=== PATIENT | female | born 1990 | race American Indian/Alaskan Native ===

== ENCOUNTER 2017-02-20 00:43 | Emergency (ER) | payer SELFPAY | END 2017-02-20 00:56 | disposition left against medical advice (07) | LOC: ED 00:43 | DX: J02.9 Acute pharyngitis, unspecified (principal); R10.9 Unspecified abdominal pain; Z53.21 Procedure and treatment not carried out due to patient leaving prior to being seen by health care provider ==

== ENCOUNTER 2017-09-13 11:57 | Emergency (ER) | payer BC ==
[2017-09-13 12:52] LABS: Hematocrit 39.4 % (30.3-42.9); Hemoglobin 12.5 gm/dl (10.1-14.3); Mean Corpuscular HGB Conc 32 % (30-34); Mean Corpuscular Hemoglobin 27 pg (28-32); Mean Corpuscular Volume 86 fl (79-97); Red Blood Count 4.58 M/mm3 (3.65-5.03); Red Cell Distribution Width 13.9 % (13.2-15.2); White Blood Count 9.1 K/mm3 (4.5-11.0)
[2017-09-13 13:01] LABS: Platelet Count 150 K/mm3 (140-440)
[2017-09-13 13:12] LABS: Alanine Aminotransferase 18 units/L (7-56); Albumin 4.2 g/dL (3.9-5); Albumin/Globulin Ratio 1.4 %; Alkaline Phosphatase 92 units/L (35-129); Anion Gap 16 mmol/L; BUN/Creatinine Ratio 18; Blood Urea Nitrogen 14 mg/dL (7-17); Calcium 9.1 mg/dL (8.4-10.2); Carbon Dioxide 27 mmol/L (22-30); Chloride 100.8 mmol/L (98-107); Glucose 98 mg/dL (65-100); Lipase 47 units/L (13-60); Potassium 4.5 mmol/L (3.6-5.0); Sodium 139 mmol/L (137-145); Total Protein 7.2 g/dL (6.3-8.2)
[2017-09-13 14:11] LABS: Bilirubin,Urine Negative (Negative); Ketones,Urine Negative (Negative)
[2017-09-13 14:12] LABS: Blood,Urine Negative (Negative); Leukocyte Esterase,Urine Negative (Negative); Nitrite,Urine Negative (Negative); Protein,Urine <15 mg/dL mg/dL (Negative); Urobilinogen,Urine < 2.0 mg/dL (<2.0)
[2017-09-13 19:55] VITALS: BP 140/80
[2017-09-13] MEDS ORDERED: CARAFATE PO ONE (21:33)
[2017-09-13] MEDS ORDERED: ALUM-MAG HYDROX-SIMETH 200-200-20MG/5ML PO ONE (21:33)
[2017-09-13] MEDS ORDERED: ZOFRAN ORAL LIQ PO ONE (21:33)
[2017-09-13] MEDS ORDERED: BENTYL PO ONE (21:33)
--- NOTE | 2017-09-13 21:33 | Emergency Department Report ---
ED General Adult HPI - General Chief complaint: Abdominal Pain Stated complaint: ABDOMINAL PAIN Time Seen by Provider: 09/13/17 21:24 Source: patient, RN notes reviewed Mode of arrival: Ambulatory Limitations: No Limitations - History of Present Illness Initial comments: This is a 27-year-old female, the patient is previously unknown to this provider. She presents to the ER with a complaint of burning lower abdominal pain. The pain has been present for months. It does not radiate anywhere. Has no exacerbating or relieving factors. Patient also describes nausea. No vomiting. There is no hematemesis. There is no bright red blood per rectum. The patient also complains of cough. The cough "feels like a drip." It is dry. -: Gradual, month(s) Location: abdomen Radiation: non-radiation Severity scale (0 -10): 5 Quality: burning Consistency: intermittent Improves with: none Worsens with: none Associated Symptoms: cough, nausea/vomiting - Related Data Home Medications Medication Instructions Recorded Confirmed Last Taken Vit 90/Iron Fum/Folic 1 tab PO DAILY 07/28/13 10/10/13 09/30/13 [ Formula] Promethazine [Phenergan] 25 mg PO Q4H PRN 07/28/13 10/10/13 09/23/13 17:00 Previous Rx's Medication Instructions Recorded Last Taken Type Amoxicillin [Trimox CAP] 1,000 mg PO BID #40 capsule 10/10/13 Unknown Rx Benzonatate [Tessalon Perles] 100 mg PO Q8HR PRN #30 capsule 09/13/17 Unknown Rx Dicyclomine [Bentyl] 10 mg PO QID PRN #20 capsule 09/13/17 Unknown Rx Famotidine [Pepcid] 20 mg PO QDAY #30 tablet 09/13/17 Unknown Rx Fluticasone [Flonase] 1 spray NS QDAY #1 bottle 09/13/17 Unknown Rx Ondansetron [Zofran Odt] 4 mg PO Q8HR PRN #20 tab.rapdis 09/13/17 Unknown Rx Allergies Allergy/AdvReac Type Severity Reaction Status Date / Time Sulfa (Sulfonamide Allergy Hives Verified 07/28/13 09:56 Antibiotics) ED Review of Systems ROS: Stated complaint: ABDOMINAL PAIN Other details as noted in HPI Constitutional: denies: malaise Eyes: denies: eye discharge ENT: denies: epistaxis Respiratory: cough Cardiovascular: denies: chest pain Gastrointestinal: abdominal pain Genitourinary: denies: dysuria, abnormal menses Skin: as per HPI Neurological: denies: headache ED Past Medical Hx - Past Medical History Previous Medical History?: No - Surgical History Past Surgical History?: No - Social History Smoking Status: Never Smoker Substance Use Type: Alcohol - Medications Home Medications: Home Medications Medication Instructions Recorded Confirmed Last Taken Type Vit 90/Iron Fum/Folic 1 tab PO DAILY 07/28/13 10/10/13 09/30/13 History [ Formula] Promethazine [Phenergan] 25 mg PO Q4H PRN 07/28/13 10/10/13 09/23/13 17:00 History Amoxicillin [Trimox CAP] 1,000 mg PO BID #40 capsule 10/10/13 Unknown Rx Benzonatate [Tessalon Perles] 100 mg PO Q8HR PRN #30 capsule 09/13/17 Unknown Rx Dicyclomine [Bentyl] 10 mg PO QID PRN #20 capsule 09/13/17 Unknown Rx Famotidine [Pepcid] 20 mg PO QDAY #30 tablet 09/13/17 Unknown Rx Fluticasone [Flonase] 1 spray NS QDAY #1 bottle 09/13/17 Unknown Rx Ondansetron [Zofran Odt] 4 mg PO Q8HR PRN #20 tab.rapdis 09/13/17 Unknown Rx ED Physical Exam - General Limitations: No Limitations General appearance: alert, in no apparent distress - Head Head exam: Present: atraumatic, normocephalic - Eye Eye exam: Present: normal appearance, EOMI. Absent: nystagmus - ENT ENT exam: Present: normal exam, normal orophraynx, mucous membranes moist, normal external ear exam - Neck Neck exam: Present: normal inspection, full ROM. Absent: tenderness, meningismus - Respiratory Respiratory exam: Present: normal lung sounds bilaterally. Absent: respiratory distress, wheezes, rales, rhonchi, stridor, chest wall tenderness - Cardiovascular Cardiovascular Exam: Present: regular rate, normal rhythm, normal heart sounds. Absent: systolic murmur, diastolic murmur, rubs, gallop - GI/Abdominal GI/Abdominal exam: Present: soft, normal bowel sounds. Absent: distended, tenderness, guarding, rebound, rigid - External exam: Present: normal external exam Speculum exam: Present: normal speculum exam. Absent: cervical discharge, vaginal bleeding Bi-manual exam: Present: normal bi-manual exam, other (escorted by FRANCIS JASSO ). Absent: cervical motion tendernes, adnexal tenderness, adnexal mass, uterine enlargement, uterine tenderness - Extremities Exam Extremities exam: Present: normal inspection, full ROM, normal capillary refill. Absent: calf tenderness - Back Exam Back exam: Present: normal inspection, full ROM. Absent: tenderness, CVA tenderness (R), paraspinal tenderness, vertebral tenderness - Neurological Exam Neurological exam: Present: alert, oriented X3, normal gait, other (Extraocular movements intact. Tongue midline. No facial droop. Facial sensation intact to light touch in the V1, V2, V3 distribution bilaterally. 5 and 5 strength in 4 extremities.. Sensation is intact to light touch in 4 extremities.). Absent : motor sensory deficit - Psychiatric Psychiatric exam: Present: normal affect, normal mood - Skin Skin exam: Present: warm, dry, intact, normal color. Absent: rash ED Course Vital Signs 09/13/17 09/13/17 12:30 19:52 Temperature 99 F 97.9 F Pulse Rate 73 80 Respiratory 18 16 Rate Blood Pressure 122/69 Blood Pressure 140/80 [Left] O2 Sat by Pulse 100 99 Oximetry ED Medical Decision Making - Lab Data Result diagrams: 09/13/17 12:36 09/13/17 12:36 Vital Signs 09/13/17 09/13/17 12:30 19:52 Temperature 99 F 97.9 F Pulse Rate 73 80 Respiratory 18 16 Rate Blood Pressure 122/69 Blood Pressure 140/80 [Left] O2 Sat by Pulse 100 99 Oximetry Lab Results 09/13/17 09/13/17 09/13/17 Range/Units 12:36 12:36 13:04 WBC 9.1 (4.5-11.0) K/mm3 RBC 4.58 (3.65-5.03) M/mm3 Hgb 12.5 (10.1-14.3) gm/dl Hct 39.4 (30.3-42.9) % MCV 86 (79-97) fl MCH 27 L (28-32) pg MCHC 32 (30-34) % RDW 13.9 (13.2-15.2) % Plt Count 150 (140-440) K/mm3 Lymph % (Auto) 19.7 (13.4-35.0) % Dent % (Auto) 11.9 H (0.0-7.3) % Eos % (Auto) 2.0 (0.0-4.3) % Baso % (Auto) 1.0 (0.0-1.8) % Lymph # 1.8 (1.2-5.4) K/mm3 Dent # 1.1 H (0.0-0.8) K/mm3 Eos # 0.2 (0.0-0.4) K/mm3 Baso # 0.1 (0.0-0.1) K/mm3 Seg Neutrophils % 65.4 (40.0-70.0) % Seg Neutrophils # 6.0 (1.8-7.7) K/mm3 Sodium 139 (137-145) mmol/L Potassium 4.5 (3.6-5.0) mmol/L Chloride 100.8 (98-107) mmol/L Carbon Dioxide 27 (22-30) mmol/L Anion Gap 16 mmol/L BUN 14 (7-17) mg/dL Creatinine 0.8 (0.7-1.2) mg/dL Estimated GFR > 60 ml/min BUN/Creatinine Ratio 18 % Glucose 98 (65-100) mg/dL Calcium 9.1 (8.4-10.2) mg/dL Total Bilirubin 0.20 (0.1-1.2) mg/dL AST 19 (5-40) units/L ALT 18 (7-56) units/L Alkaline Phosphatase 92 (35-129) units/L Total Protein 7.2 (6.3-8.2) g/dL Albumin 4.2 (3.9-5) g/dL Albumin/Globulin Ratio 1.4 % Lipase 47 (13-60) units/L Urine Color Yellow (Yellow) Urine Turbidity Clear (Clear) Urine pH 8.0 H (5.0-7.0) Ur Specific [place] 1.010 (1.003-1.030) Urine Protein <15 mg/dl (Negative) mg/dL Urine Glucose (UA) Negative (Negative) mg/dL Urine Ketones Negative (Negative) mg/dL Urine Blood Negative (Negative) Urine Nitrite Negative (Negative) Ur Reducing Substances Not Reportable Urine Bilirubin Negative (Negative) Urine Ictotest Not Reportable Urine Urobilinogen < 2.0 (<2.0) mg/dL Ur Leukocyte Esterase Negative (Negative) Urine WBC (Auto) 1.0 (0.0-6.0) /HPF Urine RBC (Auto) 1.0 (0.0-6.0) /HPF U Epithel Cells (Auto) 1.0 (0-13.0) /HPF Urine HCG, Qual Negative (Negative) - Medical Decision Making Differential diagnosis, including but not limited to: Hernia, urinary tract infection, pelvic inflammatory disease, GERD, gastritis, bronchitis Assessment and plan: 27-year-old female with months of abdominal pain has no tenderness, rebound or guarding, has benign physical exam, and a benign gynecologic exam. Given this, doubt pelvic inflammatory disease, and do not feel the patient requires advanced imaging. She is not actively vomiting, she was able to tolerate liquid medication, and upon arrival in the ER, she was sleeping in stretcher in no distress. Don't feel the patient requires x-ray of the chest is not hypoxic, has no focal pulmonary findings, explained this patient and she declines x-ray at a concern for radiation. It is not appeared to be an emergent condition at this time, the patient is suitable to follow up in outpatient primary care doctor at this time as well. Critical care attestation.: If time is entered above; I have spent that time in minutes in the direct care of this critically ill patient, excluding procedure time. ED Disposition Clinical Impression: Cough, Lower abdominal pain Disposition: DC-01 TO HOME OR SELFCARE Is pt being admited?: No Does the pt Need Aspirin: No Condition: Stable Instructions: Abdominal Pain (ED) Additional Instructions: Cultures were sent today, results will be available in the next 3-5 days. Have a primary care doctor or object oriented developer contact the medical records department to obtain culture results. Avoid consumption of heavy and/or spicy foods. Return to the ER right away with new pain, worsened pain, migration of pain, fevers, chills, lethargy, irritability, projectile vomiting, change in mental status, inability to tolerate liquid feeds, confusion. Prescriptions: Benzonatate [Tessalon Perles] 100 mg PO Q8HR PRN #30 capsule PRN Reason: Cough Dicyclomine [Bentyl] 10 mg PO QID PRN #20 capsule PRN Reason: Pain Famotidine [Pepcid] 20 mg PO QDAY #30 tablet Fluticasone [Flonase] 1 spray NS QDAY #1 bottle Ondansetron [Zofran Odt] 4 mg PO Q8HR PRN #20 tab.rapdis PRN Reason: Nausea Referrals: TIMI LOBATO III, MITA-CESAR [Primary Care Provider] - 3-5 Days JORGE SANCHEZ MD [Staff Physician] - 3-5 Days Forms: Work/School Release Form(ED)
== END 2017-09-13 22:39 | disposition home or self-care (01) ==
LOC: ED 11:57
DX: R10.30 Lower abdominal pain, unspecified (principal); R05 Cough; Z88.2 Allergy status to sulfonamides
CPT/HCPCS: 36415; 80053; 81001; 81025; 83690; 85025; 87210; 87591; 99284; Q0162

== ENCOUNTER 2018-06-25 16:33 | Outpatient (CLI) | payer BC, MEDICAID ==
[2018-06-25] MEDS ORDERED: LACTATED RINGERS 500 ML IV ONE (17:04)
[2018-06-25 17:07] VITALS: BP 107/63
[2018-06-25 17:55] LABS: Bacteria,Urine 1+ /HPF (Negative); Bilirubin,Urine NEG (Negative); Blood,Urine NEG (Negative); Color,Urine Yellow (Yellow); Mucus,Urine FEW /HPF
== END 2018-06-25 20:11 | disposition home or self-care (01) ==
LOC: TRG 16:33
PROVIDERS: ATTEND Obstetrics & Gynecology
DX: O47.03 False labor before 37 completed weeks of gestation, third trimester (principal); Z3A.34 34 weeks gestation of pregnancy
CPT/HCPCS: 59025; 81001; 96360; J7120

== ENCOUNTER 2018-07-10 01:10 | Outpatient (CLI) | payer BC, MEDICAID ==
[2018-07-10 01:26] VITALS: BP 108/66
[2018-07-10] MEDS ORDERED: LACTATED RINGERS 500 ML IV ONE (03:19)
--- NOTE | 2018-07-10 04:32 | Ultrasound Report ---
FINAL REPORT EXAM: US OB BPP WO NON-STRESS HISTORY: FHR deceleration TECHNIQUE: A limited OB sonogram was obtained for evaluation of the biophysical profile. FINDINGS: For breathing movements, a score of 2 out of 2 was obtained. For movements, a score of 2 out of 2 was obtained. For posture in tone, a score of 2 out of 2 was obtained. For qualitative amniotic fluid volume, a score of 2 out of 2 was obtained. The biophysical profile score is 8 out of 8. The heart rate is 137 BPM. IMPRESSION: Biophysical profile score of 8 out of 8. The heart rate is 137 BPM.
== END 2018-07-10 01:35 | disposition home or self-care (01) ==
LOC: TRG 01:10
PROVIDERS: ATTEND Obstetrics & Gynecology
DX: O62.8 Other abnormalities of forces of labor (principal); O26.893 Other specified pregnancy related conditions, third trimester; M25.559 Pain in unspecified hip; M54.5 Low back pain; Z3A.37 37 weeks gestation of pregnancy
CPT/HCPCS: 76819; J7120

== ENCOUNTER 2018-07-19 22:19 | Outpatient (CLI) | payer BC, MEDICAID ==
[2018-07-19 23:00] VITALS: BP 114/66
== END 2018-07-19 23:47 | disposition home or self-care (01) ==
LOC: TRG 22:19
PROVIDERS: ATTEND Obstetrics & Gynecology
DX: O26.893 Other specified pregnancy related conditions, third trimester (principal); R10.9 Unspecified abdominal pain; R22.43 Localized swelling, mass and lump, lower limb, bilateral; Z3A.38 38 weeks gestation of pregnancy
CPT/HCPCS: 59025

== ENCOUNTER 2018-07-27 18:46 | Outpatient (CLI) | payer BC, MEDICAID ==
[2018-07-27 19:34] VITALS: BP 109/67
== END 2018-07-27 21:05 | disposition left against medical advice (07) ==
LOC: TRG 18:46
PROVIDERS: ATTEND Obstetrics & Gynecology
DX: O47.1 False labor at or after 37 completed weeks of gestation (principal); Z3A.39 39 weeks gestation of pregnancy
CPT/HCPCS: 59025

== ENCOUNTER 2018-08-01 20:13 | Inpatient (IN) | payer BC, MEDICAID ==
[2018-08-01] MEDS ORDERED: ZOFRAN IV PRN (20:17)
[2018-08-01] MEDS ORDERED: MINERAL OIL PO PRN (20:17)
[2018-08-01] MEDS ORDERED: CERVIDIL VG ONE (20:17)
[2018-08-01] MEDS ORDERED: BRETHINE SUB-Q PRN (20:17)
[2018-08-01] MEDS ORDERED: XYLOCAINE 2% INFILTRATI ONE (20:17)
[2018-08-01] MEDS ORDERED: PITOCin/NS 20 UNIT/1000ML DRIP 20 UNITS/1,000 ML BAG IV SCH (21:00)
[2018-08-01] MEDS ORDERED: LACTATED RINGERS 1,000 ML IV SCH (21:00)
--- NOTE | 2018-08-01 21:21 | History and Physical Report ---
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) - Obstetrical History Expected Date of Delivery: 08/01/18 Actual Gestation: 40 Week(s) 0 Day(s) : 3 Para: 2 Hx # Term Pregnancies: 2 Number of Pregnancies: 0 Spontaneous Abortions: 0 Induced : 0 Number of Living Children: 2 Medications and Allergies Allergies Allergy/AdvReac Type Severity Reaction Status Date / Time Sulfa (Sulfonamide Allergy Severe Hives Verified 06/25/18 17:04 Antibiotics) sulfamethoxazole Allergy Severe Hives Verified 08/01/18 22:20 [From Bactrim] trimethoprim [From Bactrim] Allergy Severe Hives Verified 08/01/18 22:20 Home Medications Medication Instructions Recorded Confirmed Last Taken Type No Known Home Medications [No 08/01/18 08/01/18 Unknown History Reported Home Medications] Active Meds: Active Medications Ephedrine Sulfate (Ephedrine Sulfate) 10 mg IV Q2M PRN PRN Reason: Hypotension Fentanyl (Sublimaze) 100 mcg IV Q2H PRN PRN Reason: Labor Pain Lactated Ringer's (Lactated Ringers) 1,000 mls @ 125 mls/hr IV DIRECT AMALIA Oxytocin/Sodium Chloride (Pitocin/Ns 20 Unit/1000ml Drip) 20 units in 1,000 mls @ 125 mls/hr IV DIRECT AMALIA Oxytocin/Sodium Chloride (Pitocin/Ns 30 Unit/500ml) 30 units in 500 mls @ 4 mls /hr IV TITR AMALIA; Protocol Mineral Oil (Mineral Oil) 30 ml PO QHS PRN PRN Reason: Constipation Ondansetron HCl (Zofran) 4 mg IV Q8H PRN PRN Reason: Nausea And Vomiting Terbutaline Sulfate (Brethine) 0.25 mg SUB-Q ONCE PRN PRN Reason: Hyperstimulation/Hypertonicity Review of Systems All systems: negative - Vital Signs Vital signs: Vital Signs Pulse BP 86 109/71 08/01/18 20:50 08/01/18 20:50 Temp Pulse Resp BP Pulse Ox 97.4 F L 86 20 109/71 99 08/01/18 20:59 08/01/18 20:59 08/01/18 20:59 08/01/18 20:59 08/01/18 20:59 - Physical Exam Breasts: Positive: normal Cardiovascular: Regular rate Lungs: Positive: Clear to auscultation, Normal air movement Abdomen: Positive: normal appearance, soft Genitourinary (Female): Positive: normal external genitalia, normal perenium Vulva: both: normal Vagina: Positive: normal moisture Uterus: Positive: normal size, normal contour Adnexa: both: normal Anus/Rectum: Positive: normal perianal skin Extremities: Positive: normal - Obstetrical FHR: auscultation normal, category 1 Uterine Contraction Monitor Mode: External Cervical Dilatation: 3 Cervical Effacement Percentage: 60 station: -3 Uterine Contraction Pattern: Irregular Uterine Tone Measurement Phase: Contraction Uterine Contraction Intensity: Mild Results Result Diagrams: 08/01/18 20:40 All other labs normal. Assessment and Plan 28y/o admitted for IOL d/t thrombocytopenia @ 40w0d, GBS neg, Admission orders in EMR. Plan for cervidil tonight and pitocin tomorrow morning. - Patient Problems (1) 40 weeks gestation of Current Visit: Yes Status: Acute (2) Thrombocytopenia affecting Current Visit: Yes Status: Acute <ROXANNE HARGROVE - Last Filed: 08/02/18 10:41> History of Present Illness Date of admission: 08/01/18 20:13 History of present illness: EDC Confirmation: 08/01/2018 Gestational Age: 11 3/7 weeks Past History : 3 Term Births: 2 Premature Births: 0 Living Children: 2 Para: 2 Mult. Births: 0 Prev : 0 Prev. attempt? none Aborta: 0 Elect. Ab: 0 Spont. Ab: 0 Ectopics: 0 # 1 Delivery date: 12/04/2007 Weeks Gestation: 38 Delivery type: Hours of labor: 10 Anesthesia type: IV Delivery location: [facility] Infant Sex: Male weight: 7-2 Name: Adam Comments: Low platelets # 2 Delivery date: 03/05/2014 Weeks Gestation: 38 Delivery type: Hours of labor: 15 Anesthesia type: IV Delivery location: [place] Sex: Male weight: 7-5 Past Medical History: Reviewed history from 05/11/2014 and no changes required: Anemia Past Surgical History: Reviewed history from 05/11/2014 and no changes required: Negative Past Surgical History Past Medical History Abnormal PAP: negative Uterine Anomaly: negative 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 Genetic History Congenital Heart Defect: Mom: no Dad: no Ce Disease: Mom: no Dad: no Thalassemia Mom: no Dad: no Neural Tube Defect Mom: no Dad: no Down's Syndrome Mom: no Dad: no Deniz-Sachs Mom: no Dad: no Sickle Cell Disease/Trait Mom: no Dad: no Hemophilia Mom: no Dad: no Muscular Dystrophy Mom: no Dad: no Cystic Fibrosis Mom: no Dad: no [place] Chorea Mom: no Dad: no Mental Retardation Mom: no Dad: no Fragile X Mom: no Dad: no Other Genetic/Chromosomal Disorder Mom: no Dad: no Child w/other defect Mom: no Dad: no Enviromental Exposures Xray Exposure: no Medication, drug, or alcohol use since LMP: no Chemical/Other Exposure: no Exposure to Cat Liter: no Active Medications (reviewed today): FLAGYL 500 MG ORAL TABLET (METRONIDAZOLE) one by mouth twice a day Current Allergies (reviewed today): SULFA (Critical) BACTRIM (Critical) Medications and Allergies Active Meds: Active Medications Acetaminophen (Tylenol) 650 mg PO Q4H PRN PRN Reason: Pain MILD(1-3)/Fever >100.5/DAVIS Bisacodyl (Dulcolax) 10 mg TX BID PRN PRN Reason: Constipation Diphenhydramine HCl (Benadryl) 25 mg PO Q6H PRN PRN Reason: Itching Diphtheria/Tetanus/Acell Pertussis (Boostrix) 0.5 ml IM .ONCE ONE Stop: 08/03/18 10:24 Ephedrine Sulfate (Ephedrine Sulfate) 10 mg IV Q2M PRN PRN Reason: Hypotension Fentanyl (Sublimaze) 100 mcg IV Q2H PRN PRN Reason: Labor Pain Last Admin: 08/02/18 09:07 Dose: 100 mcg Lactated Ringer's (Lactated Ringers) 1,000 mls @ 125 mls/hr IV DIRECT AMALIA Last Admin: 08/02/18 08:55 Dose: 125 mls/hr Oxytocin/Sodium Chloride (Pitocin/Ns 20 Unit/1000ml Drip) 20 units in 1,000 mls @ 125 mls/hr IV DIRECT AMALIA Oxytocin/Sodium Chloride (Pitocin/Ns 30 Unit/500ml) 30 units in 500 mls @ 4 mls /hr IV TITR AMALIA; Protocol Last Admin: 08/02/18 08:54 Dose: 4 ml/hr, 4 mls/hr Ibuprofen (Motrin) 800 mg PO Q8H AMALIA Ketorolac Tromethamine (Toradol) 30 mg IV Q6H PRN PRN Reason: Pain, Moderate (4-6) Stop: 08/07/18 10:22 Magnesium Hydroxide (Milk Of Magnesia) 30 ml PO HS PRN PRN Reason: Constipation Measles/Mumps/Rubella Vaccine Live (M-M-R Ii Vaccine) 0.5 ml SUB-Q .ONCE ONE Stop: 08/03/18 10:24 Methylergonovine Maleate (Methergine) 0.2 mg PO Q8HR AMALIA Stop: 08/03/18 06:01 Mineral Oil (Mineral Oil) 30 ml PO QHS PRN PRN Reason: Constipation Multi-Ingredient Ointment (Lansinoh) 1 applic TP PRN PRN PRN Reason: Sore Nipples Ondansetron HCl (Zofran) 4 mg IV Q8H PRN PRN Reason: Nausea And Vomiting Promethazine HCl (Phenergan) 25 mg PO Q6H PRN PRN Reason: Nausea And Vomiting Sodium Chloride (Sodium Chloride Flush Syringe 10 Ml) 10 ml IV PRN NR Terbutaline Sulfate (Brethine) 0.25 mg SUB-Q ONCE PRN PRN Reason: Hyperstimulation/Hypertonicity Witch Lizabeth/Glycerin (Tucks Pad) 1 each TP PRN PRN PRN Reason: Hemorrhoid/cleansing/soothing - Vital Signs Vital signs: Vital Signs Pulse BP 86 109/71 08/01/18 20:50 08/01/18 20:50 Temp Pulse Resp BP Pulse Ox 97.9 F 96 H 18 121/57 99 08/02/18 03:39 08/02/18 10:33 08/02/18 09:07 08/02/18 10:33 08/01/18 20:59 Results Result Diagrams: 08/01/18 20:40 Abnormal lab results 08/01/18 Range/Units 20:40 MCH 26 L (28-32) pg Plt Count 64 L (140-440) K/mm3 All other labs normal. Strep Gp B RODRIGO Negative HBsAg Screen Negative Negative *1 RPR Non Reactive Non Reactive *2 Rubella Antibodies, IgG 7.12 index Immune >0.99 *3 Non-immune <0.90 Equivocal 0.90 - 0.99 Immune >0.99 ABO Grouping B *4 Rh Factor Positive *5 Please note: Prior records for this patient's ABO / Rh type are not available for additional verification. Antibody Screen See Final Results Negative *6 Tests: (2) Ab Scr+Antibody ID ([id number]) ! Antibody Screen [A] Positive Negative *7 ! Antibody Id. #1 Anti-Richy a *8 ! Josh Titer #1 LEWISA *9 Anti Richy a is of the IgM class and will not cross the placenta. It has not been reported as a cause of HDN. Titer not indicated. If a numerical titer result has been reported, please note that this result is the reciprocal value of titer results formerly reported as 1:2,1:4, 1:8, etc. These results are now reported as 2, 4, 8, etc. The [employer] has recommended this change in titer reporting formats to simply reflect the reciprocal value of the titer. ! Antibody Id. #2 <No Reported Value> *10 ! Josh Titer #2 <No Reported Value> *11 Tests: (3) Profile I ([id number]) WBC 8.2 x10E3/uL 3.4-10.8 *12 RBC 4.26 x10E6/uL 3.77-5.28 *13 Hemoglobin 11.3 g/dL 11.1-15.9 *14 Hematocrit 35.0 % 34.0-46.6 *15 MCV 82 fL 79-97 *16 MCH [L] 26.5 pg 26.6-33.0 *17 MCHC 32.3 g/dL 31.5-35.7 *18 RDW 13.6 % 12.3-15.4 *19 Platelets [L] 130 x10E3/uL 150-379 *20 Neutrophils 70 % Not Estab. *21 Lymphs 19 % Not Estab. *22 Monocytes 9 % Not Estab. *23 Eos 2 % Not Estab. *24 Basos 0 % Not Estab. *25 ! Immature Cells <No Reported Value> *26 Neutrophils (Absolute) 5.7 x10E3/uL 1.4-7.0 *27 Lymphs (Absolute) 1.5 x10E3/uL 0.7-3.1 *28 Monocytes(Absolute) 0.8 x10E3/uL 0.1-0.9 *29 Eos (Absolute) 0.1 x10E3/uL 0.0-0.4 *30 Baso (Absolute) 0.0 x10E3/uL 0.0-0.2 *31 ! Immature Granulocytes 0 % Not Estab. *32 ! Immature Grans (Abs) 0.0 x10E3/uL 0.0-0.1 *33 ! NRBC <No Reported Value> *34 Hematology Comments: <No Reported Value> *35 Tests: (4) Panel [id number] ([id number]) HIV Screen 4th Generation wRfx Non Reactive Non Reactive *36 Tests: (5) HCV Ab w/Rflx to Verification ([id number]) ! HCV Ab <0.1 s/co ratio 0.0-0.9 *37 Tests: (6) Comment: ([id number]) ! Comment: SPRCS *38 Non reactive HCV antibody screen is consistent with no HCV infection, unless recent infection is suspected or other evidence exists to indicate HCV infection. Tests: (7) Urine Culture, Routine ([id number]) Urine Culture, Routine Final report *39 Tests: (8) Result ([id number]) ! Result 1 "Result Below..." *40 RESULT: Lactobacillus species 50,000-100,000 colony forming units per mL
[2018-08-01 21:38] LABS: Hemoglobin 11.2 gm/dl (10.1-14.3); Red Blood Count 4.24 M/mm3 (3.65-5.03)
[2018-08-01 21:39] LABS: Mean Corpuscular HGB Conc 32 % (30-34); Mean Corpuscular Hemoglobin 26 pg (28-32); Mean Corpuscular Volume 83 fl (79-97); Red Cell Distribution Width 14.5 % (13.2-15.2)
[2018-08-01 22:24] LABS: Platelet Count 64 K/mm3 (140-440)
[2018-08-02] MEDS: SUBLIMAZE IV PRN ×2 (06:49→09:07)
[2018-08-02] MEDS ORDERED: PITOCin/NS 30 UNIT/500ML 30 UNITS/500 ML BAG IV SCH (09:00)
[2018-08-02] MEDS ORDERED: METHERGINE IM ONE ×2 (10:03→10:21)
[2018-08-02] MEDS ORDERED: DULCOLAX PR PRN (10:23)
[2018-08-02] MEDS ORDERED: BENADRYL PO PRN (10:23)
[2018-08-02] MEDS ORDERED: TORADOL IV PRN (10:23)
[2018-08-02] MEDS ORDERED: MILK OF MAGNESIA PO PRN (10:23)
[2018-08-02] MEDS ORDERED: TUCKS PAD TP PRN (10:23)
[2018-08-02] MEDS ORDERED: TYLENOL PO PRN (10:23)
[2018-08-02] MEDS ORDERED: PHENERGAN PO PRN (10:23)
[2018-08-02] MEDS ORDERED: LANSINOH TP PRN (10:23)
--- NOTE | 2018-08-02 10:31 | Procedure Note ---
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 Pt progressed quickly to complete. live born male over intact perineum CAN X 1 reduced. Baby to mom's abdomen skin to skin. Placenta and membrane delivered complete and intact, 3 vessel cord. Pit IVFs 8/9, EBL 300 - pt given IM Methergine due to prev hx of PPH. Wgt 6-10. Mom and baby remain LDR stable - Infant A at 1 minute: 8 at 5 minutes: 9 Infant Gender: Male (wgt 6-10)
[2018-08-02] MEDS ORDERED: SODIUM CHLORIDE FLUSH SYRINGE 10 ML IV NR (11:00)
[2018-08-02] MEDS: MOTRIN PO SCH (11:59)
[2018-08-02] MEDS: METHERGINE PO SCH (17:25)
[2018-08-02] MEDS ORDERED: BICITRA PO ONE (18:00)
[2018-08-02 22:01] LABS: Hematocrit 36.3 % (30.3-42.9)
[2018-08-03] MEDS: MOTRIN PO SCH (01:15)
[2018-08-03] MEDS: METHERGINE PO SCH ×2 (01:16→18:07)
[2018-08-03] MEDS ORDERED: M-M-R II VACCINE SUB-Q ONE (06:00)
[2018-08-03] MEDS ORDERED: BOOSTRIX IM ONE (06:00)
--- NOTE | 2018-08-03 08:19 | Discharge Summary ---
Providers - Providers Date of Admission: 08/01/18 20:13 Date of discharge: 08/03/18 (pt agrees with d/c) Attending physician: ROCK RODRIGUEZ Primary care physician: ROCK RODRIGUEZ Hospitalization Reason for admission: induction of labor Delivery: Episiotomy: none Laceration: none Incision: normal Other procedures: none complications: none Discharge diagnosis: IUP at term delivered [place] baby: male Hospital course: uncomplicated vaginal delivery Pt resting Caring for NB VSS FF below umb Lochia small Perineum intact H&H stable Doing well s/p vag delivery P: d/c today with instructions RTO 1 week for circ and 4 weeks for PP care Condition at discharge: Good Disposition: DC-01 TO HOME OR SELFCARE - Discharge Diagnoses (1) Normal spontaneous vaginal delivery Status: Acute Comment: RTO 4 weeks PP care Plan - Discharge Medications Prescriptions: Ibuprofen [Motrin 800 MG tab] 800 mg PO TID PRN #30 tablet PRN Reason: Pain Lidocain2.5%/Prilocai2.5% [Emla] 5 gm TP PRN #1 tube - Provider Discharge Summary Activity: routine, no sex for 6 weeks, no heavy lifting 4 weeks, no strenuous exercise Diet: routine Instructions: routine Additional instructions: [] Smoking cessation referral if applicable(refer to patient education folder for contact #) [] Refer to [facility]'s [facility] Booklet Call your doctor immediately for: * Fever > 100.5 * Heavy vaginal bleeding ( >1 pad per hour) * Severe persistent headache * Shortness of breath * Reddened, hot, painful area to leg or breast * Drainage or odor from incision. * Keep incision clean and dry at all times and follow doctor's instructions regarding bathing/showering - Follow up plan Follow up: ROCK RODRIGUEZ MD [Primary Care Provider] - 7 Days (Congratulations! Please call [phone] to schedule your visit in 4 weeks and your son's circumcision in 1 week. Bring the EMLA cream to his visit. Do Not use at home. Take medications as instructed. Call with any concerns.)
[2018-08-03] MEDS ORDERED: BICITRA PO NR (08:33)
[2018-08-03] MEDS ORDERED: MOTRIN PO SCH (09:00)
[2018-08-03 22:13] VITALS: BP 112/73
== END 2018-08-03 21:56 | disposition home or self-care (01) | DRG 807 ==
LOC: LD 20:13 → OB 08-02 12:41
PROVIDERS: ADMIT Obstetrics & Gynecology; ATTEND Obstetrics & Gynecology
PROC: 10E0XZZ Delivery of Products of Conception, External Approach (ICD-10-PCS; principal; 2018-08-02)
PROC: 3E0234Z Introduction of Serum, Toxoid and Vaccine into Muscle, Percutaneous Approach (ICD-10-PCS; 2018-08-03)
DX: O99.12 Other diseases of the blood and blood-forming organs and certain disorders involving the immune mechanism complicating childbirth (principal); Z37.0 Single live birth; O69.81X0 Labor and delivery complicated by cord around neck, without compression, not applicable or unspecified; D69.6 Thrombocytopenia, unspecified; Z88.2 Allergy status to sulfonamides; Z88.8 Allergy status to other drugs, medicaments and biological substances; Z3A.40 40 weeks gestation of pregnancy; Z23 Encounter for immunization
CPT/HCPCS: 36415; 85014; 85018; 85027; 86592; 86850; 86900; 86901; 90715; J1885; J2210; J2590; J3010; J7120